=== PATIENT | female | born 2000 | race African-American/Black ===

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

== ENCOUNTER 2019-06-30 11:24 | Outpatient (CLI) | payer MEDICAID ==
[2019-06-30 12:00] LABS: APPEARANCE,URINE SLIGHTLY-CLOUDY; BILIRUBIN,URINE NEGATIVE (NEGATIVE); COLOR,URINE DARK YELLOW; GLUCOSE, URINE NEGATIVE (NEGATIVE); KETONES,URINE NEGATIVE (NEGATIVE); LEUKOCYTE ESTERASE,URINE NEGATIVE (NEGATIVE); NITRITE,URINE NEGATIVE (NEGATIVE); PROTEIN,URINE 30 mg/dL (NEGATIVE); URINE SPECIFIC GRAVITY 1.019
[2019-06-30 12:17] LABS: URINE AMPHETAMINES SCREEN NEGATIVE; URINE BARBITURATES SCREEN NEGATIVE; URINE BENZODIAZEPINES SCREEN NEGATIVE; URINE COCAINE SCREEN NEGATIVE; URINE METHADONE SCREEN NEGATIVE; URINE PHENCYCLIDINE SCREEN NEGATIVE
[2019-06-30 12:24] LABS: URINE MARIJUANA (THC) SCREEN UNCONFIRMED POSITIVE
[2019-06-30] MEDS ORDERED: RINGERS SOLUTION,LACTATED 500 ML IV PRN (13:50)
[2019-06-30] MEDS ORDERED: BETAMET ACET/BETAMET NA INJ 6 MG/1 ML IM ONE (15:02)
[2019-06-30] MEDS ORDERED: BETAMET ACET/BETAMET NA INJ 6 MG/1 ML ONE (15:06)
[2019-06-30 15:29] LABS: T.VAGINALIS (WET MOUNT) NO TRICHOMONAS SEEN
[2019-06-30 15:30] LABS: RBCS (WET MOUNT) RARE RBCS SEEN; WBCS (WET MOUNT) RARE WBCS SEEN; YEAST (WET MOUNT) NO YEAST SEEN
[2019-06-30 16:56] LABS: CHLAM PCR NOT DETECTED (NOT DETECT)
--- NOTE | 2019-06-30 17:28 | Non Stress Test Report ---
Non Stress Test Datetime Report Generated by CPN: 06/30/2019 17:28 DEMOGRAPHIC EGA NST: 32.4 INDICATION Indication for Study (NST) Other: false labor MONITORING Monitor Explained: Monitor Explained; Test Explained; Patient Verbalized Understanding Monitor Explained: Monitor Explained; Test Explained; Patient Verbalized Understanding Time on Monitor: 06/30/2019 11:43 Time off Monitor: 06/30/2019 16:57 NST Duration: 314 NST INTERVENTIONS NST Interventions: PO Hydration NST Interventions: PO Hydration; IV Fluids; Reposition Patient Physician Notified NST: Varsha Garcia CNM on unit reviewed fht BABY A: [id number] BABY A Movement : Present Contraction Frequency : irregular FHR Baseline : 145 Accelerations : 15X15 Decelerations : Variable Variability : Moderate 6-25bpm NST Review: Meets Criteria for Reactive NST NST Review and Verified By : Elif Richard [facility] NST Results: Reactive NST REPORT Report Trigger: Send Report
== END 2019-06-30 16:12 | disposition home or self-care (01) ==
LOC: LC 11:24
PROVIDERS: ATTEND Obstetrics & Gynecology Gynecology
PROC: 4A1HXCZ Monitoring of Products of Conception, Cardiac Rate, External Approach (ICD-10-PCS; principal; 2019-06-30)
DX: O47.03 False labor before 37 completed weeks of gestation, third trimester (principal); Z3A.32 32 weeks gestation of pregnancy
CPT/HCPCS: 59025; 96372; 87491 ×2; 87591 ×2; 87210; 81001; 80307; G0480 ×2; J0702; 80349

== ENCOUNTER 2019-07-01 15:15 | Outpatient (CLI) | payer MEDICAID ==
[2019-07-01] MEDS ORDERED: BETAMET ACET/BETAMET NA INJ 6 MG/1 ML IM ONE (15:20)
[2019-07-01] MEDS ORDERED: BETAMET ACET/BETAMET NA INJ 6 MG/1 ML ONE (15:21)
== END 2019-07-01 15:25 | disposition home or self-care (01) ==
LOC: LC 15:15
PROVIDERS: ATTEND Student in an Organized Health Care Education/Training Program
PROC: 4A1HXCZ Monitoring of Products of Conception, Cardiac Rate, External Approach (ICD-10-PCS; principal; 2019-07-01)
DX: O47.03 False labor before 37 completed weeks of gestation, third trimester (principal); Z3A.32 32 weeks gestation of pregnancy
CPT/HCPCS: 59025; 96372; J0702

== ENCOUNTER 2019-08-12 01:50 | Inpatient (IN) | payer MEDICAID ==
[2019-08-12] MEDS ORDERED: OXYTOCIN/NORMAL SALINE 0 UNIT/0 ML RTUINJ ONE (02:23)
[2019-08-12] MEDS ORDERED: MISOPROSTOL 0.2 MG TABLET ONE (02:23)
[2019-08-12] MEDS ORDERED: LIDOCAINE 1% INJ-PF (10 MG/ML) 30 ML SDV ONE (02:23)
[2019-08-12] MEDS ORDERED: OXYTOCIN 10 UNIT/ML VIAL ONE (02:23)
[2019-08-12] MEDS ORDERED: RINGERS SOLUTION,LACTATED 1,000 ML IV ONE (02:53)
[2019-08-12] MEDS ORDERED: RINGERS SOLUTION,LACTATED 1,000 ML IV PRN (02:53)
[2019-08-12] MEDS ORDERED: GLYCERIN/WITCH HAZEL LEAF 1 EACH MED..WIPE TP PRN (02:54)
[2019-08-12] MEDS ORDERED: PROMETHAZINE HCL 25 MG TABLET PO PRN (02:54)
[2019-08-12] MEDS ORDERED: OXYTOCIN/NORMAL SALINE 20 UNIT/1,000 ML RTUINJ IV PRN (02:54)
[2019-08-12] MEDS ORDERED: ZOLPIDEM TARTRATE 5 MG TABLET PO PRN (02:54)
[2019-08-12] MEDS ORDERED: ACETAMINOPHEN WITH CODEINE #3 TABLET PO PRN (02:54)
[2019-08-12] MEDS ORDERED: PROMETHAZINE HCL 25 MG SUPP.RECT PR PRN (02:54)
[2019-08-12] MEDS ORDERED: ACETAMINOPHEN 325 MG TABLET PO PRN (02:54)
[2019-08-12] MEDS ORDERED: DIPH/PERTUSS(ACELL)/TETANUS VAC/PF 0.5 ML SYR (>=10YO) IM PRN (02:54)
[2019-08-12] MEDS ORDERED: MEASLES,MUMPS&RUBELLA VACC/PF 0.5 ML VIAL SUBCUT PRN (02:54)
[2019-08-12] MEDS ORDERED: DIBUCAINE 1% OINTMENT 28 GM TP PRN (02:54)
[2019-08-12] MEDS ORDERED: BENZOCAINE/MENTHOL AEROSOL SPRAY 56 ML TOP PRN (02:54)
[2019-08-12] MEDS ORDERED: PSEUDOEPHEDRINE HCL 30 MG TABLET PO PRN (02:54)
[2019-08-12] MEDS ORDERED: PROMETHAZINE HCL INJ 25 MG/1 ML VIAL IV PRN (02:54)
[2019-08-12] MEDS ORDERED: MAGNESIUM HYDROXIDE SUSP 30 ML UDCUP PO PRN (02:54)
[2019-08-12] MEDS ORDERED: MISOPROSTOL 0.2 MG TABLET PR PRN (02:54)
[2019-08-12] MEDS ORDERED: DIPHENHYDRAMINE HCL 25 MG CAPSULE PO PRN (02:54)
[2019-08-12] MEDS ORDERED: NA PHOS,M-B/NA PHOS,DI-BA (ADULT) 133 ML ENEMA PR PRN (02:54)
--- NOTE | 2019-08-12 03:00 | Admission Physical ---
Datetime Report Generated by CPN: 08/12/2019 03:00 CURRENT ADMISSION Chief Complaint: Uterine Contractions Indication for Induction: Not Applicable Admit Impression : Term, Intrauterine ; Active Labor; Intact Membranes Admit Plan: Admit to Unit; Initiate Labor Protocol ALLERGIES Medication Allergies: No Medication Allergies: No Known Allergies (08/12/2019) Latex: No Latex Allergies Food Allergies: poultry Environmental Allergies: none OBSTETRICAL HISTORY EDC: 08/21/2019 00:00 : 2 Para: 1 Term: 1 : 0 SAB: 0 IAB: 0 Ectopic: 0 Livin Cesareans: 0 VBACs: 0 Gestational Diabetes: No Rh Sensitization: No Incompetent Cervix: No DINO: No Infertility: No ART Treatment: No Uterine Anomaly: No IUGR: No Hx Previous C/S: No Macrosomia: No Hx Loss/Stillborn: No PIH: No Hx : No Placenta Previa/Abruption: No Depression/PP Depression: No PTL/PROM: No Post Hemorrhage: No Current Procedures: Ultrasound; NST SEE RECORDS Alcohol: No Marijuana : No Cocaine: No Other Illicit Drugs: No Cigarettes: Former Smoker. [id number] MEDICAL HISTORY Diabetes: No Blood Transfusion: No Pulmonary Disease (Asthma, TB): Yes Breast Disease: No Hypertension: No Gripper Installer Surgery: No Heart Disease: No Hosp/Surgery: No Autoimmune Disorder: No Anesthetic Complications: No Kidney Disease: No Abnormal Pap Smear: No Neuro/Epilepsy: No Psychiatric Disorders: No Other Medical Diseases: No Hepatitis/Liver Disease: No Significant Family History: No Varicosities/Phlebitis: No Trauma/Violence : No Thyroid Dysfunction: No INFECTIOUS HISTORY Gonorrhea: Yes Genital Herpes: No Chlamydia: Yes Tuberculosis: No Syphilis: No Hepatitis: No HIV/AIDS Exposure: No Rash or Viral Illness: No HPV: No PHYSICAL EXAM General: Normal HEENT: Normal Neurologic: Normal Thyroid: Deferred Heart: Normal Lungs: Normal Breast: Deferred Back: Normal Abdomen: Normal Genitourinary Exam: Normal Extremities: Normal DTRs: Normal Pelvic Type: Adequate Vital Signs: Reviewed VAGINAL EXAM Dilatation: 9 Effacement: 100 Station: 1 Contraction Comments: q 2-3 MEMBRANES Membranes: Intact FETUS A EGA: 38.5 Monitoring: External US FHR- Baseline: 145 Variability: Moderate 6-25bpm Accelerations: 15X15 Decelerations: None FHR Category: Category I Presentation: Vertex Admit Comment: 89yo with close interval presents for active labor at AL/c/+1 then AROM at delivery and c/c/+2. GBS negative. Admit and anticipate precipitous delivery. O/w uncomplicated . Pt desires to not have epidural. PLANS FOR LABOR AND DELIVERY Labor and Delivery: None Pain Management: Medications Feeding Preference: Breast Benefit of Breast Feed Discussed: Yes Circumcision: Yes INFORMED CONSENT Informed Consent Obtained: Vaginal Delivery; Risks, Benefits and Alternatives Discussed Signature: with User ID: [email or web address]
[2019-08-12 03:38] LABS: ABSOLUTE EOSINOPHILS # (AUTO) 0.1 10^3/uL (0.0-0.6); ABSOLUTE LYMPHOCYTES (AUTO) 1.2 10^3/uL (0.5-4.7); ABSOLUTE MONOCYTES (AUTO) 0.9 10^3/uL (0.1-1.4); ABSOLUTE NEUT (AUTO) 7.7 10^3/uL (1.7-8.2); BASOPHILS % (AUTO) 0.5 % (0-2); EOSINOPHILS % (AUTO) 1.3 % (0-6); HEMATOCRIT 38.4 % (36.0-47.0); HEMOGLOBIN 13.4 g/dL (12.0-15.5); LYMPHOCYTES % (AUTO) 12.1 % (13-45); MEAN CORPUSCULAR HEMOGLOBIN 31.3 pg (27.0-33.4); MEAN CORPUSCULAR HGB CONC 34.9 g/dL (32.0-36.0); MEAN CORPUSCULAR VOLUME 90 fl (80-97); MONOCYTES % (AUTO) 9.2 % (3-13); PLATELET COUNT 272 10^3/uL (150-450); RED BLOOD COUNT 4.29 10^6/uL (3.72-5.28); RED CELL DISTRIBUTION WIDTH 13.8 % (11.5-14.0); SEGMENTED NEUTROPHILS % (AUTO) 76.9 % (42-78); TOTAL CELLS COUNTED % (AUTO) 100 %
[2019-08-12] MEDS ORDERED: IBUPROFEN 800 MG TABLET ONE (04:28)
--- NOTE | 2019-08-12 04:45 | Delivery Summary ---
Del Sum A-C Datetime Report Generated by CPN: 08/12/2019 04:45 DELIVERY PERSONNEL DELIVERY PERSONNEL: [id number] Delivery Doctor:: Maddison Nam MD Labor and Delivery Nurse:: Almita Doll RNcuring pickling packer Nurse:: Alpa Delgado RN Nursery Nurse:: Muriel Dumas RN Underground Mining Section Foreman/DEMAND GENERATION MANAGER: Ilana Porras, HUMAIRA Underground Mining Section Foreman/DEMAND GENERATION MANAGER: Maria Marie, ST MATERNAL INFORMATION Delivery Anesthesia: None Medications After Delivery: Pitocin 10 Units IM; Cytotec 1000mcg Per Rectum/Vagina Estimated Blood Loss (ml): 50 Maternal Complications: Precipitous Labor (<3hrs) Provider Comments: VMI delivered in TL presentation. Tight nuchal cord delivered through. Shoulders and body delivered without difficulty. Cord doubly clamped and cut. to maternal abdomen for NRP. Placenta delivered intact spontaneously. No perineal lacerations. FF at U after cytotec 1000mcg per rectum placed. Mother and baby stable upon provider leaving the room. LABOR SUMMARY EDC: 08/21/2019 00:00 No. Babies in Womb: 1 Attempted: No Labor Anesthesia: None LABOR INFORMATION Reason for Induction: Not Applicable Onset of Labor: 08/11/2019 08:00 Complete Dilatation: 08/12/2019 02:31 Group B Beta Strep: Negative Antibiotics # of Doses: 0 Steroids Given: None Reason Steroids Not Administered: Not Applicable MEMBRANES Membranes Rupture Method: Artificial Rupture of Membranes: 08/12/2019 02:31 Length of Rupture (hr): 0.13 Amniotic Fluid Color: Clear Amniotic Fluid Amount: Moderate STAGES OF LABOR Stage 1 hr: 18 Stage 1 min: 31 Stage 2 hr: 0 Stage 2 min: 8 Stage 3 hr: 0 Stage 3 min: 4 Total Time in Labor hr: 18 Total Time in Labor min: 43 VAGINAL DELIVERY Episiotomy: None Laceration #1: None Laceration Extension #1: N/A Laceration Repair: Not Applicable Sponge Count Correct: Yes Sharps Count Correct: Yes CSECTION DELIVERY Primary Indication: N/A Secondary Indication: N/A CSection Incidence: N/A Labor: N/A Elective: N/A CSection Incision: N/A BABY A INFORMATION Delivery Date/Time: 08/12/2019 02:39 Method of Delivery: Vaginal Nurse Controlled Delivery: No Born in Route : No : N/A Forceps: N/A Vacuum Extraction: N/A Shoulder Dystocia : No PRESENTATION/POSITION BABY A Presentation: Cephalic Cephalic Presentation: Vertex Vertex Position: Right Occipital Anterior Breech Presentation: N/A PLACENTA INFORMATION BABY A Placenta Delivery Time : 08/12/2019 02:43 Placenta Method of Delivery: Spontaneous Placenta Status: Delivered SCORES BABY A Heart Rate 1 min: >100 bpm Resp Effort 1 min: Slow, Irregular Reflex Irritability 1 min: Cough or Sneeze or Pulls Away Muscle Tone 1 min: Some Flexion of Extremities Color 1 min: Body [place], Extremities Blue Resuscitation Effort 1 min: Tactile Stimulation SCORE 1 MIN: 7 Heart Rate 5 min: >100 bpm Resp Effort 5 min: Slow, Irregular Reflex Irritability 5 min: Cough or Sneeze or Pulls Away Muscle Tone 5 min: Active Motion Color 5 min: Completely [place] SCORE 5 MIN: 9 INFORMATION BABY A Gestational Age at Delivery: 38.5 Gestational Status: Early Term- 37- 38.6 Weeks Outcome : Liveborn Condition : Stable Sex: Male IDENTIFICATION BABY A Infant Verification Date/Time: 08/12/2019 02:54 ID Band Number: [id number] Mother's Name Verified: Yes RN Verifying Infant: CMoniqueDoll, RN and , RN WEIGHT/LENGTH BABY A Birthweight (gm): 3519 Infant Weight (lb): 7 Infant Weight (oz): 12 Infant Length (in): 20.00 Length (cm): 50.80 CORD INFORMATION BABY A No. Cord Vessels: 3 Nuchal Cord : Around Neck x1, Tight Cord Blood Taken: Yes-For Eval (Mom's Blood Type - or O+) Infant Suction: None ASSESSMENT BABY A Skin to Skin: Yes Skin to Skin Time (min): 60 SIGNATURES Signature: with User ID: [email or web address]
[2019-08-12] MEDS: IBUPROFEN 800 MG TABLET PO SCH ×3 (06:40→21:05)
[2019-08-12] MEDS: ACETAMINOPHEN WITH CODEINE #3 TABLET PO PRN (08:21)
--- NOTE | 2019-08-12 09:45 | PDOC PROGRESS REPORT ---
Subjective-OB Progress Note for:: 08/12/19 Subjective: Pt doing well, delivery <24 hrs, reports bleeding is normal without clots, has been up to void, reg diet, no concerns. Physical Exam (OB) Vital Signs: Temp Pulse Resp BP Pulse Ox 97.8 F 92 14 133/60 H 100 08/12/19 08:08 08/12/19 08:08 08/12/19 08:08 08/12/19 08:08 08/12/19 08:08 Intake & Output 08/11/19 08/12/19 08/13/19 06:59 06:59 06:59 Weight 67.4 kg - Abdomen Fundal Description: Firm Fundal Height: u/u - u/2 Objective-Diagnostic Laboratory: 08/12/19 03:17 08/12/19 08/12/19 03:17 03:17 WBC 10.0 RBC 4.29 Hgb 13.4 Hct 38.4 MCV 90 MCH 31.3 MCHC 34.9 RDW 13.8 Plt Count 272 Seg Neutrophils % 76.9 Blood Type A POSITIVE Antibody Screen NEGATIVE
[2019-08-12] MEDS: DOCUSATE SODIUM 100 MG CAPSULE PO SCH ×2 (10:30→17:23)
[2019-08-12] MEDS: FAMOTIDINE 20 MG TABLET PO SCH ×2 (10:30→21:05)
[2019-08-12] MEDS: PRENATAL VITAMIN W DHA CAPSULE PO SCH (10:30)
[2019-08-12] MEDS: SENNOSIDES/DOCUSATE 8.6-50 MG 1 EACH TABLET PO SCH (10:30)
[2019-08-12] MEDS: FERROUS SULFATE 325 MG TABLET PO SCH ×2 (10:30→17:23)
[2019-08-12 14:57] LABS: APPEARANCE,URINE SLIGHTLY-CLOUDY; BILIRUBIN,URINE NEGATIVE (NEGATIVE); COLOR,URINE RED; GLUCOSE, URINE NEGATIVE (NEGATIVE); KETONES,URINE NEGATIVE (NEGATIVE); LEUKOCYTE ESTERASE,URINE MODERATE (NEGATIVE); NITRITE,URINE NEGATIVE (NEGATIVE); PROTEIN,URINE 100 mg/dL (NEGATIVE); URINE SPECIFIC GRAVITY 1.003; UROBILINOGEN,URINE NEGATIVE mg/dL (<2.0)
[2019-08-12 15:26] LABS: URINE AMPHETAMINES SCREEN NEGATIVE; URINE BARBITURATES SCREEN NEGATIVE; URINE BENZODIAZEPINES SCREEN NEGATIVE; URINE COCAINE SCREEN NEGATIVE; URINE MARIJUANA (THC) SCREEN NEGATIVE; URINE METHADONE SCREEN NEGATIVE; URINE PHENCYCLIDINE SCREEN NEGATIVE
[2019-08-13] MEDS: ACETAMINOPHEN WITH CODEINE #3 TABLET PO PRN (02:47)
[2019-08-13] MEDS: IBUPROFEN 800 MG TABLET PO SCH ×3 (05:41→21:13)
[2019-08-13 08:06] LABS: HEMATOCRIT 31.7 % (36.0-47.0); MEAN CORPUSCULAR HEMOGLOBIN 30.6 pg (27.0-33.4); MEAN CORPUSCULAR HGB CONC 34.2 g/dL (32.0-36.0); MEAN CORPUSCULAR VOLUME 90 fl (80-97); PLATELET COUNT 238 10^3/uL (150-450); RED BLOOD COUNT 3.54 10^6/uL (3.72-5.28); RED CELL DISTRIBUTION WIDTH 13.9 % (11.5-14.0); WHITE BLOOD COUNT 11.4 10^3/uL (4.0-10.5)
[2019-08-13 08:08] LABS: HEMOGLOBIN 10.8 g/dL (12.0-15.5)
[2019-08-13] MEDS: FAMOTIDINE 20 MG TABLET PO SCH ×2 (09:16→21:13)
[2019-08-13] MEDS: SENNOSIDES/DOCUSATE 8.6-50 MG 1 EACH TABLET PO SCH (09:16)
[2019-08-13] MEDS: FERROUS SULFATE 325 MG TABLET PO SCH ×2 (09:16→17:59)
[2019-08-13] MEDS: DOCUSATE SODIUM 100 MG CAPSULE PO SCH ×2 (09:16→17:59)
[2019-08-13] MEDS: PRENATAL VITAMIN W DHA CAPSULE PO SCH (09:17)
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
[2019-08-14] MEDS: IBUPROFEN 800 MG TABLET PO SCH (05:49)
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
[2019-08-14] MEDS: FERROUS SULFATE 325 MG TABLET PO SCH (10:41)
[2019-08-14] MEDS: PRENATAL VITAMIN W DHA CAPSULE PO SCH (10:41)
[2019-08-14] MEDS: DOCUSATE SODIUM 100 MG CAPSULE PO SCH (10:41)
[2019-08-14] MEDS: SENNOSIDES/DOCUSATE 8.6-50 MG 1 EACH TABLET PO SCH (10:41)
[2019-08-14] MEDS: FAMOTIDINE 20 MG TABLET PO SCH (10:42)
[2019-08-14 11:06] VITALS: BP 124/55
== END 2019-08-14 12:25 | disposition home or self-care (01) | DRG 807 ==
LOC: LC 01:50 → LR 02:31 → 2S 05:14
PROVIDERS: ADMIT Student in an Organized Health Care Education/Training Program; ATTEND Student in an Organized Health Care Education/Training Program
PROC: 10E0XZZ Delivery of Products of Conception, External Approach (ICD-10-PCS; principal; 2019-08-12)
PROC: 10907ZC Drainage of Amniotic Fluid, Therapeutic from Products of Conception, Via Natural or Artificial Opening (ICD-10-PCS; 2019-08-12)
DX: O62.3 Precipitate labor (principal); Z37.0 Single live birth; O69.1XX0 Labor and delivery complicated by cord around neck, with compression, not applicable or unspecified; Z3A.35 35 weeks gestation of pregnancy; Z91.410 Personal history of adult physical and sexual abuse; Z87.891 Personal history of nicotine dependence
CPT/HCPCS: 36415; 80307; 81005; 85025; 85027; 86592; 86850; 86900; 86901; J2590; J3490

== ENCOUNTER 2020-02-24 13:00 | Emergency (ER) | payer MEDICAID ==
--- NOTE | 2020-02-24 13:15 | ER Document Report ---
ED Medical Screen (RME) - General Chief Complaint: Skin Sore(s) Stated Complaint: SKIN SORE ON VAGINA Time Seen by Provider: 02/24/20 13:06 Primary Care Provider: JENNA PICKENS MD [Primary Care Provider] - Follow up as needed Mode of Arrival: Ambulatory Information source: Patient Notes: Patient is a 20-year-old female presents the emergency department concern for a sore on the inside of her vagina. She states it is very tender. She denies any pain or burning when she pees, denies any abnormal discharge, denies any fever, chills, abdominal pain. Patient is alert, oriented, does not appear to be in any acute distress. Exam deferred until patient is in a room. I have greeted and performed a rapid initial assessment of this patient. A comprehensive ED assessment and evaluation of the patient, analysis of test results and completion of the medical decision making process will be conducted by additional ED providers. I have specifically instructed the patient or family members with the patient to immediately return to any nursing staff should anything change in the patient's condition or with their chief complaint. TRAVEL OUTSIDE OF THE [place] IN LAST 30 DAYS: No - Related Data Allergies/Adverse Reactions: No Known Allergies Allergy (Verified 08/12/19 02:06) Past Medical History - Past Medical History Cardiac Medical History: Denies: Hx Heart Attack, Hx Hypertension Pulmonary Medical History: Reports: Hx Asthma - HX Neurological Medical History: Denies: Hx Cerebrovascular Accident, Hx Seizures Renal/ Medical History: Denies: Hx Peritoneal Dialysis GI Medical History: Denies: Hx Hepatitis, Hx Hiatal Hernia, Hx Ulcer Infectious Medical History: Denies: Hx Hepatitis Past Surgical History: Denies: Hx Mastectomy, Hx Open Heart Surgery, Hx Pacemaker - Immunizations Immunizations up to date: Yes Hx Diphtheria, Pertussis, Tetanus Vaccination: Yes Physical Exam - Vital signs Vitals: Temp Pulse Resp BP Pulse Ox 98.1 F 76 16 129/60 H 98 02/24/20 13:02/24/20 13:02/24/20 13:02/24/20 13:02/24/20 13:06 Course - Vital Signs Vital signs: Temp Pulse Resp BP Pulse Ox 98.1 F 76 16 129/60 H 98 02/24/20 13:02/24/20 13:02/24/20 13:06 02/24/20 13:06 02/24/20 13:06 Doctor's Discharge - Discharge Referrals: JENNA PICKENS MD [Primary Care Provider] - Follow up as needed
--- NOTE | 2020-02-24 15:31 | ER Document Report ---
HPI - HPI Time Seen by Provider: 02/24/20 13:06 Pain Level: Denies Notes: 20-year-old female patient presents the emergency department concern for possible lump on the right side of her vagina. She states it began yesterday. She has no history of similar. She denies any drainage from the area. Denies any fever or chills. - ROS Systems Reviewed and Negative: Yes All other systems reviewed and negative - REPRODUCTIVE LMP: 02/24/2020 Reproductive: DENIES: : - DERM Notes: Vaginal abscess Past Medical History - General Information source: Patient - Social History Smoking Status: Never Smoker Frequency of alcohol use: None Drug Abuse: None Family History: Reviewed & Not Pertinent Patient has homicidal ideation: No - Past Medical History Cardiac Medical History: Denies: Hx Heart Attack, Hx Hypertension Pulmonary Medical History: Reports: Hx Asthma - HX Neurological Medical History: Denies: Hx Cerebrovascular Accident, Hx Seizures Renal/ Medical History: Denies: Hx Peritoneal Dialysis GI Medical History: Denies: Hx Hepatitis, Hx Hiatal Hernia, Hx Ulcer Infectious Medical History: Denies: Hx Hepatitis Past Surgical History: Denies: Hx Mastectomy, Hx Open Heart Surgery, Hx Pacemaker - Immunizations Immunizations up to date: Yes Hx Diphtheria, Pertussis, Tetanus Vaccination: Yes Vertical Provider Document - CONSTITUTIONAL Notes: PHYSICAL EXAMINATION: GENERAL: Well-appearing, well-nourished and in no acute distress. HEAD: Atraumatic, normocephalic. EYES: Pupils equal round and reactive to light, extraocular movements intact, conjunctiva are normal. ENT: Nares patent, oropharynx clear without exudates. Moist mucous membranes. NECK: Normal range of motion, supple without lymphadenopathy LUNGS: Breath sounds clear to auscultation bilaterally and equal. No wheezes rales or rhonchi. HEART: Regular rate and rhythm without murmurs ABDOMEN: Soft, nontender, nondistended abdomen. No guarding, no rebound. No masses appreciated. Female : Bartholin's cyst noted to right side. Fluctuance and edema noted. Tender to palpate. Musculoskeletal: Normal range of motion, no pitting or edema. No cyanosis. NEUROLOGICAL: Cranial nerves grossly intact. Normal speech, normal gait. Normal sensory, motor exams PSYCH: Normal mood, normal affect. SKIN: Warm, Dry, normal turgor, no rashes or lesions noted. - INFECTION CONTROL TRAVEL OUTSIDE OF THE [place] IN LAST 30 DAYS: No Course - Re-evaluation Re-evalutation: Patient with Bartholin's gland cyst. This was drained, patient tolerated well. Patient counseled on Bartholin gland cyst. Patient verbalizes understanding of ED return precautions. - Vital Signs Vital signs: Temp Pulse Resp BP Pulse Ox 98.1 F 76 16 129/60 H 98 02/24/20 13:06 02/24/20 13:06 02/24/20 13:06 02/24/20 13:06 02/24/20 13:06 Procedures - Incision and Drainage Right side of vagina Type: Simple Anesthetic type: 1% Lidocaine Blade size: 11 I&D procedure: Betadine prep applied Incision Method: Incision made by scalpel Discharge - Discharge Clinical Impression: Bartholin gland cyst Condition: Stable Disposition: HOME, SELF-CARE Additional Instructions: Bartholin Gland Cyst or Abcess The Bartholin glands are located on each side of the entrance to the vagina. These glands secrete lubricating fluid. If a gland becomes plugged, it can create a "Bartholin's cyst." This creates a large bulge on one side of the labia. A cyst is usually not very painful. If a Bartholin's cyst or gland becomes infected, it creates an abscess. This is a painful collection of pus. One side of the labia becomes swollen, red, and painful. It will be very painful to walk or sit. When a Bartholin's cyst causes mild symptoms, it can sometimes be treated with sitz baths and antibiotics. A painful abscess usually needs to be drained (lanced). If there are signs of infection in the tissues around the abscess, we prescribe antibiotics. Antibiotics are not always necessary for an abscess that's been drained. Return if you have increasing fever, body aches, lightheadedness, or if the swelling and pain is getting worse. Prescriptions: Cephalexin [Keflex] 500 mg PO BID #14 capsule Referrals: JENNA PICKENS MD [Primary Care Provider] - Follow up as needed
[2020-02-24 16:05] VITALS: BP 132/78
== END 2020-02-24 16:04 | disposition home or self-care (01) ==
LOC: ER 13:00
DX: N75.0 Cyst of Bartholin's gland (principal); J45.909 Unspecified asthma, uncomplicated
CPT/HCPCS: 99283